=== PATIENT | male | born 1980 | race Caucasian/White ===

== ENCOUNTER 2018-07-04 00:59 | Emergency (ER) | payer MEDICAID, OTHER ==
[~2018-07-04] VITALS: Ht 162.6 cm; Wt 89.4 kg
[~2018-07-04 00:59] MED LIST: IBUP-1542 PO
[2018-07-04 01:02] VITALS: BP 148/87; PULSE 65; RESP 18; Ht 162.6 cm; Wt 89.4 kg
[2018-07-04] MEDS ORDERED: HYDROCODONE/APAP (10/325) TAB PO ONE (02:00)
--- NOTE | 2018-07-04 02:10 | ERD ---
ER Documentation Chief Complaint Chief Complaint left lower jaw pain, s/p tooth extraction 4 days ago HPI This is a 37-year-old male who presents here in the emergency department with complaints of left lower toothache. Stated that he had a tooth extraction 4 days ago. Denies headache, head injury, loss of consciousness, dizziness, neck pain, neck stiffness, throat pain, difficulty swallowing, difficulty breathing lying flat, shoulder pain, chest pain, back pain, abdominal pain, nausea, vomiting, constipation, diarrhea, urinary symptoms, loss of bowel and bladder control, trauma, injury, falls, difficulty walking due to pain, numbness or tingling sensation, calf pain, recent travel, recent major surgery in the last 3 weeks, calf pain, recent long travel, recent exposure to any illness, recent antibiotic use in the last 3 months, fever, chills, seizures. Past medical history: Denies. Surgical history: Denies. Social: Denies smoking, use of alcoholic beverages, use of illegal drugs. ROS All systems reviewed and are negative except as per history of present illness. Medications Home Meds Active Scripts Hydrocodone/Acetaminophen ([place] 10-325 Tablet) 1 Each Tablet, 1 TAB PO Q6H PRN for PAIN, #7 TAB Prov:PASILABAN,KLAR F 07/04/18 Ibuprofen* (Motrin*) 800 Mg Tab, 800 MG PO Q6H PRN for PAIN AND OR ELEVATED TEMP, #30 TAB Prov:PASILABAN,KLAR F 07/04/18 Penicillin V Potassium* (Penicillin V K*) 500 Mg Tab, 500 MG PO QID for 7 Days, TAB Prov:PASILABAN,KLAR F 07/04/18 Ibuprofen* (Motrin*) 600 Mg Tab, 600 MG PO Q6, #20 TAB Prov:NORMA DUGAN PA-C 03/26/15 Allergies Allergies: Coded Allergies: No Known Allergy (Unverified , 03/28/15) PMhx/Soc Medical and Surgical Hx: pt denies Medical Hx, pt denies Surgical Hx Hx Alcohol Use: No Hx Substance Use: No Hx Tobacco Use: No Smoking Status: Never smoker Physical Exam Vitals Vital Signs Date Temp Pulse Resp B/P (MAP) Pulse Ox O2 O2 Flow FiO2 Time Delivery Rate 07/04/18 97.2 65 18 148/87 98 01:02 (107) Physical Exam Const: No acute distress Head: Atraumatic Eyes: Normal Conjunctiva ENT: Normal External Ears, Nose and Mouth. Throat: Uvula is in midline and nondisplaced. Tonsils are +1 bilaterally without redness and without exudates. Tolerating secretions. Patent airway. Speaks full and clear sentences. Tooth extraction noted to the area of left lower second molar. Gum on this area has swelling. No bleeding. No discharge. No facial swelling. No tongue swelling. Neck: Full range of motion. No meningismus. No nuchal rigidity. No signs of meningeal irritation. Resp: Clear to auscultation bilaterally Cardio: Regular rate and rhythm, no murmurs Abd: Soft, non tender, non distended. Normal bowel sounds Skin: No petechiae or rashes Back: No midline or flank tenderness Ext: No cyanosis, or edema Neur: Awake and alert. No neurological deficits. Psych: Normal Mood and Affect Results 24 hrs Current Medications Medications Dose Sig/Francisco Javier Start Time Status Last (Trade) Ordered Route PRN Stop Time Admin Dose Reason Admin 1 tab ONCE ONCE 07/04/18 DC 07/04/18 Acetaminophen PO 02:00 02:10 / 07/04/18 Hydrocodone 02:01 Bitart ([place] ()) Procedures/MDM Diagnostic tests: Clinical exam. Treatment: [place] p.o. Re-evaluation: Denies pain. Differential diagnosis I have low suspicion for peritonsillar abscess, mastoiditis, sepsis, meningitis. Final diagnosis: Status post tooth extraction with possible gum infection. Prescription: Penicillin. Tylenol No. 3. Follow-up with dentist in the next 24-48 hours. Come back here in the emergency department for any new symptoms or any worsening symptoms. All questions and concerns were answered. Patient and family members verbalized understanding and agreed with plan of care. Hemodynamically stable on discharge. Departure Diagnosis: Primary Impression: Toothache Condition: Stable Additional Instructions: Follow-up with dentist in the next 24-48 hours. Come back here in the emergency department for any new symptoms or any worsening symptoms. RUBA GUIDRY Jul 04, 2018 02:10
[2018-07-04] MEDS ORDERED: PENI500T PO (02:11)
[2018-07-04] MEDS ORDERED: HYDR-3980 PO (02:12)
[2018-07-04] MEDS ORDERED: IBUP800T48 PO (02:12)
== END 2018-07-04 02:30 | disposition home or self-care (01) ==
LOC: FTE 00:59
DX: K08.89 Other specified disorders of teeth and supporting structures (principal)
CPT/HCPCS: Z7502; Z7610; 99283